=== PATIENT | male | born 1930 | race Caucasian/White ===

== ENCOUNTER 2017-08-22 06:54 | Inpatient (IN) | payer OTHER ==
[~2017-08-22] VITALS: Ht 172.7 cm; Wt 105.8 kg
[~2017-08-22 06:54] MED LIST: DULO20CA PO; PYRI200T8 OR; SIMV-8 PO; SITA50TA PO
[2017-08-22] MEDS ORDERED: ceFAZolin 1GM/100ML 200 ML IV ONE (07:12)
[2017-08-22] MEDS ORDERED: PREGABALIN CAPSULE 75 MG CAP PO ONE (07:15)
[2017-08-22] MEDS ORDERED: CELECOXIB 100 MG CAP PO ONE (07:15)
[2017-08-22] MEDS ORDERED: ACETAMINOPHEN IV 1000 MG/100ML (10MG/ML) IV ONE (07:15)
[2017-08-22] MEDS ORDERED: ceFAZolin 1GM 2 GM in D5W 5% 100 ML IV ONE (07:15)
[2017-08-22] MEDS ORDERED: TRANEXAMIC ACID 20 ML ONE (07:36)
[2017-08-22] MEDS ORDERED: BUPIVACAINE 0.25% INJ 50ML VIAL ONE (07:36)
[2017-08-22] MEDS ORDERED: KETOROLAC TROMETH 30 MG/ML 1ML VIAL ONE (07:40)
[2017-08-22] MEDS ORDERED: VANCOMYCIN HCL 1000 MG VL ONE (07:40)
[2017-08-22] MEDS ORDERED: MORPHINE SULF(PF) 0.5MG/ML 10ML VIAL ONE (07:42)
[2017-08-22] MEDS ORDERED: TETRACAINE 1% INJ 2 ML VIAL IJ ONE (08:04)
[2017-08-22] MEDS ORDERED: PROPOFOL 10 MG/ML 20 ML IV ONE (08:15)
[2017-08-22] MEDS ORDERED: DEXAMETHASONE SOD PHOS 10MG/1ML VIAL INJ IV ONE (08:15)
[2017-08-22] MEDS ORDERED: fentaNYL CITRATE 100 MCG/2 ML VL ONE ×2 (08:19→08:57)
[2017-08-22] MEDS ORDERED: ROCURONIUM 10MG/ML 10ML VIAL IV ONE (08:58)
[2017-08-22] MEDS ORDERED: MORPHINE SULFATE INJECTION 1 ML ONE (09:37)
[2017-08-22] MEDS: InsuLIN REG 1unit/0.01ml Soln (100units/ml) SC SCH ×3 (11:30→23:09)
[2017-08-22] MEDS ORDERED: DEXTROSE (50%) 50ML SYRG IV PRN (11:30)
[2017-08-22] MEDS ORDERED: ePHEDrine SULFATE 50 MG/ML AMP IV PRN (11:30)
[2017-08-22] MEDS ORDERED: ACCU-CHEK COMFORT CURVE STRIP VI SCH (11:30)
[2017-08-22] MEDS ORDERED: MORPHINE SULFATE 4 MG/ML SYR/VIAL IV PRN ×3 (11:30)
[2017-08-22] MEDS: ONDANSETRON HCL 4 MG/2 ML VIAL IV ONE (11:30)
[2017-08-22] MEDS: ACCU-CHEK COMFORT CURVE STRIP VI SCH ×3 (11:30→23:07)
[2017-08-22] MEDS ORDERED: ACETAMINOPHEN 325 MG TAB PO PRN (11:30)
[2017-08-22] MEDS ORDERED: NITROGLYCERIN 0.4 MG SL TAB SL PRN (11:30)
[2017-08-22] MEDS ORDERED: ONDANSETRON HCL 4 MG/2 ML VIAL IV PRN (11:30)
[2017-08-22] MEDS ORDERED: hydrALAZINE HCL 20 MG/ML VL IV PRN (11:30)
[2017-08-22] MEDS ORDERED: ceFAZolin 1GM 2 GM in D5W 5% 100 ML IV SCH (14:00)
[2017-08-22] MEDS: LACTATED RINGER'S 1,000 ML IV SCH ×2 (14:04→21:18)
[2017-08-22] MEDS: SODIUM CHLOR 0.9% PF (SALINE LOCK) 10ML VIAL/SYR IV SCH ×2 (14:08→23:26)
[2017-08-22] MEDS: PYRIDOXINE HCL 50 MG TAB PO SCH (16:02)
[2017-08-22 17:23] VITALS: BP 110/67
[2017-08-22 22:00] VITALS: BP 116/54
[2017-08-22] MEDS ORDERED: ATORVASTATIN 20 MG TAB PO SCH (22:00)
[2017-08-22] MEDS: DOCUSATE SOD 100 MG CAP PO SCH (22:00)
[2017-08-22] MEDS ORDERED: ceFAZolin 1GM/100ML 100 ML IV ONE (23:30)
[2017-08-22] MEDS: ceFAZolin 1GM 2 GM in D5W 5% 100 ML IV SCH (23:38)
[2017-08-23 04:55] VITALS: BP 104/47
[2017-08-23] MEDS ORDERED: ceFAZolin 1GM/100ML 100 ML IV ONE (06:39)
[2017-08-23] MEDS: SODIUM CHLOR 0.9% PF (SALINE LOCK) 10ML VIAL/SYR IV SCH ×3 (06:46→22:08)
[2017-08-23] MEDS: InsuLIN REG 1unit/0.01ml Soln (100units/ml) SC SCH ×4 (06:47→22:14)
[2017-08-23] MEDS: ACCU-CHEK COMFORT CURVE STRIP VI SCH ×4 (06:47→22:10)
[2017-08-23] MEDS: ceFAZolin 1GM 2 GM in D5W 5% 100 ML IV SCH (06:54)
[2017-08-23 07:37] LABS: BUN/Creatinine Ratio 23.9; Bilirubin, Total 0.5 mg/dL (0.2-1.0); Calcium 8.2 mg/dL (8.5-10.1); Potassium 4.7 mmol/L (3.5-5.1); Total Protein 6.1 g/dL (6.4-8.2)
[2017-08-23 07:47] LABS: Hematocrit 36.7 % (41.0-53.0); Hemoglobin 12.1 g/dL (13.5-17.5)
[2017-08-23 09:00] VITALS: BP 103/94
[2017-08-23] MEDS: DOCUSATE SOD 100 MG CAP PO SCH ×2 (09:13→22:08)
[2017-08-23] MEDS: LACTATED RINGER'S 1,000 ML IV SCH ×2 (09:13→17:18)
[2017-08-23] MEDS ORDERED: ENOXAPARIN SOD 30 MG/0.3 ML SYRINGE SC SCH (10:00)
[2017-08-23] MEDS ORDERED: DULOXETINE HCL 20 MG PO SCH (10:00)
[2017-08-23] MEDS: PYRIDOXINE HCL 50 MG TAB PO SCH (11:24)
[2017-08-23] MEDS: ONDANSETRON HCL 4 MG/2 ML VIAL IV ONE (11:28)
[2017-08-23 13:00] VITALS: BP 108/49
[2017-08-23] MEDS ORDERED: SITA100T7 PO (13:40)
[2017-08-23 17:00] VITALS: BP 109/31
[2017-08-23] MEDS: HYDROcodone-ACET 5/325MG TAB PO PRN (21:00)
[2017-08-23 22:00] VITALS: BP 116/51
[2017-08-23] MEDS ORDERED: ATORVASTATIN 20 MG TAB PO SCH (22:00)
[2017-08-24 05:00] VITALS: BP 105/56
[2017-08-24] MEDS: SODIUM CHLOR 0.9% PF (SALINE LOCK) 10ML VIAL/SYR IV SCH ×2 (06:52→14:00)
[2017-08-24] MEDS: InsuLIN REG 1unit/0.01ml Soln (100units/ml) SC SCH ×3 (06:53→17:00)
[2017-08-24] MEDS: ACCU-CHEK COMFORT CURVE STRIP VI SCH ×3 (06:54→17:00)
[2017-08-24 07:55] LABS: Hematocrit 36.6 % (41.0-53.0); Hemoglobin 12.1 g/dL (13.5-17.5)
[2017-08-24 09:00] VITALS: BP 95/34
[2017-08-24] MEDS: HYDROcodone-ACET 5/325MG TAB PO PRN (09:42)
[2017-08-24] MEDS ORDERED: ENOXAPARIN SOD 40 MG/0.4 ML SYRINGE SC SCH (10:00)
[2017-08-24] MEDS: PYRIDOXINE HCL 50 MG TAB PO SCH (10:00)
[2017-08-24] MEDS ORDERED: DULoxetine HCL 30 MG CAP PO SCH (10:00)
[2017-08-24] MEDS: DOCUSATE SOD 100 MG CAP PO SCH (10:37)
[2017-08-24 13:00] VITALS: BP 122/60
[2017-08-24 17:00] VITALS: BP 120/58
== END 2017-08-24 17:54 | disposition home health service (06) | DRG 470 ==
LOC: SUR 06:54 → TELE-WESTW 06:55
PROVIDERS: ADMIT Orthopaedic Surgery Adult Reconstructive Orthopaedic Surgery; ATTEND Internal Medicine
PROC: 0SRD0J9 Replacement of Left Knee Joint with Synthetic Substitute, Cemented, Open Approach (ICD-10-PCS; principal; 2017-08-22 08:15)
DX: M17.12 Unilateral primary osteoarthritis, left knee (principal); E11.22 Type 2 diabetes mellitus with diabetic chronic kidney disease; N18.3 Chronic kidney disease, stage 3 (moderate); E78.5 Hyperlipidemia, unspecified; I25.2 Old myocardial infarction
CPT/HCPCS: 36415; 73560; 80053; 82962; 85014; 85018; 86850; 86900; 86901; 97110; 97116; 97163; 97530; C1713; J0131; J0690; J1100; J1815; J1885; J2405; J2704; J3490; J7060

== ENCOUNTER 2017-08-25 07:08 | Emergency (ER) | payer OTHER ==
[~2017-08-25] VITALS: Ht 175.3 cm; Wt 81.6 kg
[~2017-08-25 07:08] MED LIST changes: +SITA100T7 PO; -SITA50TA PO
[2017-08-25] MEDS ORDERED: HYDROcodone-ACET 10/325MG TAB PO ONE (08:00)
[2017-08-25 10:48] VITALS: BP 100/47
== END 2017-08-25 11:05 | disposition home or self-care (01) ==
LOC: ER 07:08 → EDBD 07:08 → ER 11:05
DX: S86.912A Strain of unspecified muscle(s) and tendon(s) at lower leg level, left leg, initial encounter (principal); N18.3 Chronic kidney disease, stage 3 (moderate); E11.22 Type 2 diabetes mellitus with diabetic chronic kidney disease; E78.5 Hyperlipidemia, unspecified; I25.2 Old myocardial infarction; E66.01 Morbid (severe) obesity due to excess calories; Z68.26 Body mass index [BMI] 26.0-26.9, adult; Z89.512 Acquired absence of left leg below knee; X58.XXXA Exposure to other specified factors, initial encounter; Y93.89 Activity, other specified; Y92.89 Other specified places as the place of occurrence of the external cause; Y99.8 Other external cause status
CPT/HCPCS: 82962

== ENCOUNTER 2018-05-01 06:30 | Emergency (ER) | payer OTHER ==
[~2018-05-01] VITALS: Ht 167.6 cm; Wt 83.0 kg
[~2018-05-01 06:30] MED LIST changes: +DOXY-338 PO
[2018-05-01] MEDS ORDERED: ONDANSETRON HCL 4 MG/2 ML VIAL IV ONE (06:45)
[2018-05-01] MEDS ORDERED: MORPHINE SULFATE 4 MG/ML SYR/VIAL IV ONE (06:45)
[2018-05-01 07:36] LABS: Basophils # (auto) 0.1 uL; Basophils % (auto) 1.1 % (0.0-2.0); Eosinophils # (auto) 0.3 uL; Eosinophils % (auto) 3.1 % (0.0-7.0); Hematocrit 41.9 % (41.0-53.0); Hemoglobin 14.2 g/dL (13.5-17.5); Lymphocytes # (auto) 1.1 uL; Lymphocytes % (auto) 12.4 % (10.0-50.0); Mean Corpuscular Hemoglobin 31.3 pg (28.0-32.0); Mean Corpuscular Hgb Conc. 33.9 g/dL (32.0-36.0); Mean Corpuscular Volume 92.4 fL (80.0-100.0); Monocytes % (auto) 10.7 % (0.0-12.0); Neutrophils # (auto) 6.6 uL; Neutrophils % (auto) 72.7 % (37.0-80.0); Nucleated Red Blood Cells % 0.1 %; Platelet Count (auto) 196 10^3/uL (140-450); Red Blood Cells 4.53 10^6/uL (4.5-5.90); Red Cell Distribution Width 15.3 % (11.8-14.3); White Blood Cell 9.1 10^3/uL (4.4-10.8)
[2018-05-01 07:58] LABS: BUN/Creatinine Ratio 23.2; Calcium 8.4 mg/dL (8.5-10.1); Magnesium 2.1 mg/dL (1.6-2.6); Potassium 3.9 mmol/L (3.5-5.1)
[2018-05-01 08:04] LABS: Bilirubin, Total 0.9 mg/dL (0.2-1.0); Total Protein 6.4 g/dL (6.4-8.2)
[2018-05-01 12:00] VITALS: BP 100/60
== END 2018-05-01 12:10 | disposition home or self-care (01) ==
LOC: EDBD 06:30 → ER 06:35
DX: M25.512 Pain in left shoulder (principal); E11.22 Type 2 diabetes mellitus with diabetic chronic kidney disease; N18.9 Chronic kidney disease, unspecified; E78.5 Hyperlipidemia, unspecified; I25.2 Old myocardial infarction; Z95.0 Presence of cardiac pacemaker
CPT/HCPCS: 36415; 71045; 80053; 83735; 84484; 85025; 93005; 94761; 96374; 96375; 99284; J2270; J2405